=== PATIENT | female | born 1985 | race Caucasian/White ===

== ENCOUNTER 2019-07-12 20:48 | Emergency (ER) | payer OTHER ==
[~2019-07-12] VITALS: Ht 162.6 cm; Wt 70.9 kg
[~2019-07-12 20:48] MED LIST: BUPRENORPHIN-N1 EACH SL; DILAUDID2 MG PO; NOVOLOG100 U/M1 SC
[2019-07-12 20:53] VITALS: Ht 162.6 cm; Wt 70.9 kg
[2019-07-12] MEDS ORDERED: COREG 3.1253.125 MG PO (20:53)
[2019-07-12] MEDS ORDERED: ATIVAN1 MG PO (21:51)
[2019-07-12 22:05] VITALS: BP 131/94
== END 2019-07-12 22:06 | disposition home or self-care (01) ==
LOC: D.ER 20:48
DX: F41.9 Anxiety disorder, unspecified (principal)

== ENCOUNTER 2019-07-25 21:00 | Emergency (ER) | payer OTHER ==
[~2019-07-25] VITALS: Ht 162.6 cm; Wt 70.5 kg
[~2019-07-25 21:00] MED LIST changes: +ATIVAN1 MG PO; +COREG 3.1253.125 MG PO
[2019-07-25 21:03] VITALS: Ht 162.6 cm; Wt 70.5 kg
[2019-07-25] MEDS ORDERED: KLONOPIN1 MG PO (21:44)
[2019-07-25] MEDS ORDERED: CELEXA20 MG PO (21:44)
[2019-07-25 22:01] VITALS: BP 128/89
== END 2019-07-25 22:00 | disposition home or self-care (01) ==
LOC: D.ER 21:00
DX: F41.0 Panic disorder [episodic paroxysmal anxiety] (principal); E11.9 Type 2 diabetes mellitus without complications

== ENCOUNTER 2019-10-11 20:08 | Emergency (ER) | payer OTHER ==
[~2019-10-11] VITALS: Ht 162.6 cm; Wt 75.0 kg
[~2019-10-11 20:08] MED LIST changes: +CELEXA20 MG PO; +KLONOPIN1 MG PO
[2019-10-11 20:15] VITALS: Ht 162.6 cm; Wt 75.0 kg
[2019-10-11] MEDS ORDERED: SKELAXIN800 MG PO (22:31)
[2019-10-11 23:00] VITALS: BP 127/73
== END 2019-10-11 23:01 | disposition home or self-care (01) ==
LOC: D.ER 20:08
DX: M62.830 Muscle spasm of back (principal); E11.9 Type 2 diabetes mellitus without complications; Z79.4 Long term (current) use of insulin; F32.9 Major depressive disorder, single episode, unspecified

== ENCOUNTER 2020-03-16 20:20 | Emergency (ER) | payer MEDICAID ==
[~2020-03-16] VITALS: Ht 162.6 cm; Wt 70.5 kg
[~2020-03-16 20:20] MED LIST changes: +SKELAXIN800 MG PO
[2020-03-16 20:25] VITALS: Ht 162.6 cm; Wt 70.5 kg
[2020-03-16] MEDS ORDERED: HYDROCODON-ACE1 EA10 PO (20:47)
[2020-03-16 21:05] VITALS: BP 152/101
== END 2020-03-16 21:06 | disposition home or self-care (01) ==
LOC: D.ER 20:20
DX: K08.89 Other specified disorders of teeth and supporting structures (principal); S02.5XXA Fracture of tooth (traumatic), initial encounter for closed fracture; E11.9 Type 2 diabetes mellitus without complications; Z79.4 Long term (current) use of insulin

== ENCOUNTER 2020-03-22 13:49 | Emergency (ER) | payer MEDICAID ==
[~2020-03-22] VITALS: Ht 162.6 cm; Wt 74.5 kg
[~2020-03-22 13:49] MED LIST changes: +HYDROCODON-ACE1 EA10 PO
[2020-03-22 14:07] VITALS: BP 144/90; Ht 162.6 cm; Wt 74.5 kg
[2020-03-22] MEDS ORDERED: SMZ-TMP DS 800-1 TAB PO (14:23)
[2020-03-22] MEDS ORDERED: KEFLEX500 MG PO (14:23)
== END 2020-03-22 14:34 | disposition home or self-care (01) ==
LOC: D.ER 13:49
DX: L03.114 Cellulitis of left upper limb (principal); F41.9 Anxiety disorder, unspecified; E11.9 Type 2 diabetes mellitus without complications; Z79.4 Long term (current) use of insulin; T63.301A Toxic effect of unspecified spider venom, accidental (unintentional), initial encounter